=== PATIENT | female | born 1995 | race Caucasian/White ===

== ENCOUNTER 2021-01-24 16:18 | Emergency (ER) | payer OTHER ==
[~2021-01-24] VITALS: Ht 162.6 cm; Wt 86.2 kg
== END 2021-01-24 17:43 | disposition home or self-care (01) ==
LOC: ER 16:18
DX: S01.112A Laceration without foreign body of left eyelid and periocular area, initial encounter (principal); Z23 Encounter for immunization; W22.8XXA Striking against or struck by other objects, initial encounter
CPT/HCPCS: 12001; 90471; 90714; 99282-25

== ENCOUNTER 2022-04-29 21:39 | Emergency (ER) | payer OTHER ==
[~2022-04-29] VITALS: Ht 170.2 cm; Wt 81.7 kg
== END 2022-04-29 23:18 | disposition home or self-care (01) ==
LOC: ER 21:39
DX: K08.89 Other specified disorders of teeth and supporting structures (principal)
CPT/HCPCS: 64400; 99282-25

== ENCOUNTER → 2023-06-28 | Outpatient (CLI) | payer OTHER ==
[~2023-06-28] MED LIST: Amoxicillin500 MG PO
[2023-06-28 13:53] LABS: Source, Urine Clean Catch
[2023-06-28 15:43] LABS: Appearance, Urine Cloudy (Clear); Bilirubin, Urine Neg (Neg); Blood, Urine 1+ (Neg); Color, Urine Yellow (P-Yellow); Glucose Qualitative, Urine Neg (Neg); Ketones, Urine 1+ (Neg); Leukocyte Esterase, Urine 3+ (Neg); Nitrite, Urine Neg (Neg); Protein, Urine 1+ (Neg); Specific Gravity, Urine 1.025 (1.003-1.022); Urobilinogen, Urine 2+ (Normal)
[2023-06-28 15:56] LABS: Calcium Oxalate Crystals Many /hpf
[2023-06-28 15:57] LABS: Bacteria Many /hpf; Squamous Epithelial Cells Many /hpf (Few); White Blood Cells, Urine TNTC /hpf (0-5)
== END | disposition home or self-care (01) ==
LOC: LAB SHORT 13:51 → LAB 13:51
PROVIDERS: Advanced Practice Midwife
DX: R39.89 Other symptoms and signs involving the genitourinary system (principal)
CPT/HCPCS: 81001; 87086

== ENCOUNTER 2023-08-30 06:33 | Inpatient (IN) | payer OTHER ==
[~2023-08-30] VITALS: Ht 162.6 cm; Wt 105.7 kg
[2023-08-30] VITALS (35 sets, daily range): BP systolic 94–137; BP diastolic 47–87
[2023-08-30] MEDS ORDERED: Lactated Ringer's 1,000 ML IV SCH ×4 (07:40→18:25)
[2023-08-30] MEDS ORDERED: FentaNYL 2mcg/ml-Bup 0.1% Epd 250 ML EPI PRN (07:40)
[2023-08-30] MEDS ORDERED: Misoprostol 200 MCG Tab PR SCH (07:40)
[2023-08-30] MEDS ORDERED: Lidocaine HCl 1% 30 ML SDV XX SCH (07:40)
[2023-08-30] MEDS ORDERED: Bupivacaine HCl 2.5 MG/ML 10ML P/F Injection XX SCH (07:40)
[2023-08-30] MEDS ORDERED: Bupivacaine 0.5% HCl 5 MG/ML 30MLVIAL XX SCH (07:40)
[2023-08-30] MEDS ORDERED: LR Oxytocin 20 Units 1,000 ML IV SCH ×3 (07:40→18:20)
[2023-08-30] MEDS ORDERED: ePHEDrine Sulfate 50 MG/ML 1ML Injection XX PRN (07:40)
[2023-08-30] MEDS ORDERED: Lactated Ringer's 1,000 ML IV PRN (07:40)
[2023-08-30] MEDS ORDERED: Castor Oil 59.146 ML BTL TOP SCH (07:40)
[2023-08-30] MEDS ORDERED: Oxytocin 10 Unit / ML Vial IM SCH (07:40)
[2023-08-30] MEDS ORDERED: Methylergonovine Maleate 0.2MG / ML 1ML Amp IM SCH (07:40)
[2023-08-30 07:53] LABS: BASOPHILS ABSOLUTE AUTO 0.02 K/mm3 (0.00-0.23); BASOPHILS PERCENT AUTO 0 % (0-2); EOSINOPHILS ABSOLUTE AUTO 0.12 K/mm3 (0.00-0.68); EOSINOPHILS PERCENT AUTO 1 % (0-6); Hematocrit 37.1 % (33.0-51.0); Hemoglobin 12.9 g/dL (11.5-16.0); IMMATURE GRAN ABSOLUTE AUTO 0.04 K/mm3 (0.00-0.10); IMMATURE GRAN PERCENT AUTO 0 % (0-1); LYMPHOCYTES ABSOLUTE AUTO 1.33 K/mm3 (0.84-5.20); LYMPHOCYTES PERCENT AUTO 11 % (21-46); MONOCYTES ABSOLUTE AUTO 0.66 K/mm3 (0.16-1.47); MONOCYTES PERCENT AUTO 6 % (4-13); Mean Corpuscular HGB 30.9 pg (26.0-34.0); Mean Corpuscular HGB Conc 34.8 g/dL (31.5-36.5); Mean Corpuscular Volume 89 fL (80-100); Mean Platelet Volume 10.4 fL (9.1-12.4); NEUTROPHILS ABSOLUTE AUTO 9.55 K/mm3 (1.96-9.15); NEUTROPHILS PERCENT AUTO 82 % (41-73); Platelet Count 224 K/mm3 (150-400); RDW Coefficient Variation 12.8 % (11.7-14.2); RDW Standard Deviation 41.5 fL (35.1-46.3); Red Blood Cell Count 4.17 M/mm3 (3.80-5.20); White Blood Cell Count 11.72 K/mm3 (4.00-11.30)
[2023-08-30] MEDS ORDERED: FentaNYL Citrate 50 MCG/ML 2 ML Injection ONE (13:58)
[2023-08-30] MEDS ORDERED: Benzocaine Topical Anesthetic Spray 60GM TOP PRN (18:15)
[2023-08-30] MEDS ORDERED: Methylergonovine Maleate 0.2MG / ML 1ML Amp IM PRN (18:20)
[2023-08-30] MEDS ORDERED: Witch Hazel/Glycerin PADS TOP PRN (18:20)
[2023-08-30] MEDS ORDERED: Ibuprofen 400 MG Tab PO PRN (18:20)
[2023-08-30] MEDS ORDERED: Acetaminophen 325 MG TABLET PO PRN (18:25)
[2023-08-30] MEDS ORDERED: Misoprostol 200 MCG Tab PR PRN (18:25)
[2023-08-30] MEDS ORDERED: CeFAZolin Sodium 2,000 MG in NS 100 ML IV ONE (18:35)
[2023-08-30] MEDS ORDERED: Ketorolac Tromethamine 30mg Vial IV ONE (19:00)
[2023-08-30] MEDS ORDERED: Ketorolac Tromethamine 30mg Vial IV PRN (19:00)
[2023-08-30] MEDS ORDERED: Docusate Sodium 100 MG Cap PO SCH (21:00)
[2023-08-31 04:17] VITALS: BP 112/59
[2023-08-31] MEDS ORDERED: Magnesium Hydroxide Conc 10 ML UDC PO PRN (08:25)
[2023-08-31 08:40] VITALS: BP 120/71
[2023-08-31] MEDS ORDERED: Prenatal Vit/FE Fumarate/FA 1 Tab PO SCH (09:00)
[2023-08-31] MEDS ORDERED: IBUP800 PO (10:15)
[2023-08-31] MEDS ORDERED: DOCU100 PO (10:15)
[2023-08-31] MEDS ORDERED: ACET500 (10:15)
[2023-08-31 12:34] VITALS: BP 121/70
[2023-08-31 17:02] VITALS: BP 118/80
--- NOTE | 2023-08-31 17:15 | NUR ---
DISCHARGEPT READY TO [facility] HOME. VSS. AFEBRILE. CARING FOR SELF AND BABY INDEPENDANTLY. VERBALIZES UNDERSTANDING OF DC INSTRUCTIONS AND FOLLOW UP APPOINTMENTS. NO QUESTIONS OR CONCERNS. LOCHIA SCANT. STABLE.
== END 2023-08-31 18:00 | disposition home or self-care (01) | DRG 768 ==
LOC: OBS 06:33 → BC 06:59
PROVIDERS: ADMIT Advanced Practice Midwife
PROC: 10E0XZZ Delivery of Products of Conception, External Approach (ICD-10-PCS; principal; 2023-08-30)
PROC: 0DQR0ZZ Repair Anal Sphincter, Open Approach (ICD-10-PCS; 2023-08-30)
PROC: 0UQG7ZZ Repair Vagina, Via Natural or Artificial Opening (ICD-10-PCS; 2023-08-30)
PROC: 3E0R3BZ Introduction of Anesthetic Agent into Spinal Canal, Percutaneous Approach (ICD-10-PCS; 2023-08-30)
PROC: 00HU33Z Insertion of Infusion Device into Spinal Canal, Percutaneous Approach (ICD-10-PCS; 2023-08-30)
DX: O99.214 Obesity complicating childbirth (principal); Z37.0 Single live birth; O99.284 Endocrine, nutritional and metabolic diseases complicating childbirth; E28.2 Polycystic ovarian syndrome; Z3A.39 39 weeks gestation of pregnancy; F17.210 Nicotine dependence, cigarettes, uncomplicated; O99.334 Smoking (tobacco) complicating childbirth; O70.20 Third degree perineal laceration during delivery, unspecified; Z88.0 Allergy status to penicillin; Z79.2 Long term (current) use of antibiotics
CPT/HCPCS: 51702; 85025; 86850; 86900; 86901; 86923; A9270; J0690; J1885; J2590; J7120

== ENCOUNTER → 2023-10-23 | Outpatient (CLI) | payer OTHER ==
[~2023-10-23] MED LIST changes: +ACET500; +DOCU100 PO; +IBUP800 PO
== END ==
LOC: LAB 15:56 → LAB SHORT 15:56
PROVIDERS: Advanced Practice Midwife
DX: Z01.419 Encounter for gynecological examination (general) (routine) without abnormal findings (principal)
CPT/HCPCS: G0123

== ENCOUNTER → 2024-12-12 | Outpatient (CLI) | payer OTHER ==
[~2024-12-12] MED LIST changes: +ACET500 PO; +CLIN300 PO; +IBUP600 PO
[2024-12-12 17:02] LABS: Source, Urine Clean Catch
[2024-12-12 18:24] LABS: Red Blood Cells, Urine 0-2 /hpf (0-2); U Amphetamine Screen Not Detected; U Barbituate Screen Not Detected; U Benzodiazapine Screen Not Detected; U Buprenorphine Screen Not Detected; U Cannabinoids Screen Not Detected; U Cocaine Screen Not Detected; U Methadone Screen Not Detected; U Methamphetamine Screen Not Detected; U Opiates Screen Not Detected; U Oxycodone Screen Not Detected; U Phencyclidine Screen Not Detected; White Blood Cells, Urine 0-2 /hpf (0-5)
== END ==
LOC: LAB 16:59 → LAB SHORT 16:59
PROVIDERS: Advanced Practice Midwife
DX: Z34.81 Encounter for supervision of other normal pregnancy, first trimester (principal)
CPT/HCPCS: 81015; 87086